=== PATIENT | female | born 1985 | race Caucasian/White ===

== ENCOUNTER 2017-01-23 20:23 | Emergency (ER) | payer SELFPAY ==
--- NOTE | ~2017-01-23 | ER ---
PATIENT'S NAME: LING BHATIA [facility] AGE: 31 Y [address] ROOM: [place] [id number] LOCATION: [facility] ADMIT DATE: 01/23/2017 ER/Outpatient Report DISCHARGE DATE: 01/23/2017 FAMILY PHYSICIAN: PHYSICIAN, NO ATTENDING PHYSICIAN: Haylie Johnson TIME OF PATIENT ARRIVAL: 2022. TIME OF PATIENT EVALUATION: 2034. CHIEF COMPLAINT: Upper abdominal pain. HISTORY OF PRESENT ILLNESS: This 31-year-old female presents to the ER. She states she has had some mid abdominal pain for the past 6 hours. She states she does have history of acid reflux and when she has troubles with that she does take an gwlp-ngg-cnnwrqj pill which usually seems to help her symptoms. She does not take that pill daily. She states that today's pain feels different than her acid reflux. She states it makes her feel nauseated. She has a sharp pain that radiates into her back and twisting type pain. She denies any troubles with urination. She feels like she has maybe been running a fever, but she has not checked for that. ALLERGIES: NO KNOWN ALLERGIES. MEDICATIONS: Please see medication list nurse's notes. PAST MEDICAL HISTORY: Negative. PAST SURGERIES: Scope for endometriosis, left knee surgery, and tonsillectomy. SOCIAL HISTORY: Smokes half pack a day. Denies any drug or alcohol use. REVIEW OF SYSTEMS: A 10-point review of systems was completed and was negative with the exception of those discussed in the HPI. PHYSICAL EXAMINATION: VITAL SIGNS: Height 5 feet 7 inches stated, weight 64.6 kg taken, blood pressure is 145/86, pulse 75, respirations 16, temperature 98 degrees PATIENT'S NAME: LING BHATIA [facility] AGE: 31 Y [address] ROOM: [place], [place] [address] LOCATION: [facility] ADMIT DATE: 01/23/2017 ER/Outpatient Report DISCHARGE DATE: 01/23/2017 FAMILY PHYSICIAN: PHYSICIAN, NO ATTENDING PHYSICIAN: Haylie Johnson tympanically, saturations 96% on room air. [place] Coma Score is 15. GENERAL: Alert, anxious, well-developed female, in fvwi-hb-fdxlhllk distress. HEENT. Head: Normocephalic. Eyes: Pupils are equal and reactive to light. She does display moist mucous membranes. LUNGS: Clear to auscultation bilaterally. HEART: Regular rate and rhythm. ABDOMEN: Soft. She has tenderness in all 4 quadrants with palpation but has no guarding in her upper quadrants with palpation. She has good bowel sounds throughout. No masses were palpated. EXTREMITIES: No clubbing or cyanosis. She has full range of motion of all limbs. SKIN: Warm, dry, and intact. LABORATORY DATA: CBC: White count is 10.8, hemoglobin 15.2, platelets 262, ANC is 7.3. CMS: Glucose is 110, otherwise unremarkable. Amylase 50, lipase 165. HCG is less than 1.0. H pylori was negative. CT scan shows mild to moderate stool. No other acute findings were seen. This is reported by Radiology. Ultrasound of her right upper quadrant was negative. IMPRESSION: 1. Mid abdominal pain. 2. Acid reflux. 3. Constipation. ASSESSMENT AND PLAN: We did start an IV here in the emergency room and did give her a liter of IV fluids along with 50 mcg of fentanyl and 4 mg of Zofran. She states that this mildly improved her pain. So, we then gave her a GI cocktail p.o. She states that this really did help her and brought her pain significantly down. We did give her 40 mg of Protonix. Repeated the fentanyl. The patient's pain started coming back up again, so we did give her 1 mg of Dilaudid IV. The patient initially did not want have a CAT scan, but then once pain started to return, we did do that image then. The patient states that she feels comfortable going home after her CAT scan results. We will dismiss her to home with a bottle of magnesium citrate to drink. She needs to continue to push fluids. The patient needs to eat bland foods. She needs to take her acid reflux medication daily. She may take Tums or Maalox as needed for breakthrough pain. Monitor her symptoms and I would like her to follow up with primary care physician for followup care, if she is not improving. The patient understands and agrees with the care. PATIENT'S NAME: NITA BHATIAMoi V[facility] AGE: 31 Y [address] ROOM: [place] [address] LOCATION: [facility] ADMIT DATE: 01/23/2017 ER/Outpatient Report DISCHARGE DATE: 01/23/2017 FAMILY PHYSICIAN: , JONATHAN ATTENDING PHYSICIAN: Haylie Johnson PA-C FOR MD ISAC SALINASJ/modl /[id number] d: 01/24/17 1603 t: 01/25/17 1810, OUTPATIENT REPORT
[2017-01-23 20:48] LABS: BASOPHIL # 0.1 K/uL (0.0-0.2); BASOPHIL % 0.6 %; EOSINOPHIL # 0.3 K/uL (0.0-0.5); EOSINOPHIL % 2.7 %; HEMATOCRIT 44.7 % (33.0-46.0); HEMOGLOBIN 15.2 g/dL (11.0-15.0); IMMATURE GRANULOCYTE % 0.3 %; LYMPHOCYTE # 2.6 K/uL (0.8-4.0); LYMPHOCYTE % 24.1 %; MCH 32.8 pg (27.0-34.0); MCV 96.5 fl (83.0-98.0); MONOCYTE # 0.5 K/uL (0.0-1.0); MONOCYTE % 4.8 %; MPV 11.3 fl (9.4-12.4); NEUTROPHIL # (ANC) 7.3 K/uL (1.8-7.8); NEUTROPHIL % 67.5 %; NRBC % 0 /100WBC (0-0.00); PLATELET COUNT 262 K/uL (150-450); RBC 4.63 M/uL (3.50-5.00); WBC 10.8 K/uL (4.0-11.0)
[2017-01-23 21:08] LABS: ALBUMIN 4.1 gm/dL (3.5-5.0); ALK PHOS 56 IU/L (33-138); ALT 25 IU/L (12-78); ANION GAP 12.7 (10.0-19.0); AST 19 IU/L (10-40); BLOOD UREA NITROGEN 11 mg/dL (6-24); CALCIUM 8.8 mg/dL (8.5-10.5); CHLORIDE 111 mMol/L (96-110); CO2 23 mMol/L (22-32); CREATININE 0.8 mg/dL (0.5-1.1); ESTIMATED GFR (MDRD EQUATION) > 60; POTASSIUM 3.7 mMol/L (3.7-5.1); SODIUM 143 mMol/L (135-145); TOTAL BILIRUBIN 0.2 mg/dL (0.0-1.5); TOTAL PROTEIN 7.4 g/dL (6.0-8.4)
[2017-01-28] MEDS ORDERED: DEXILANT60 MG PO (15:31)
[2017-01-28] MEDS ORDERED: NORCO 5-325 TA1 EACH PO (15:31)
== END 2017-01-23 23:01 | disposition disaster alternative care site (69) ==
LOC: GMED 20:23
PROVIDERS: Physician Assistant Medical
DX: K21.9 Gastro-esophageal reflux disease without esophagitis (principal); K59.00 Constipation, unspecified; F17.210 Nicotine dependence, cigarettes, uncomplicated; Z98.890 Other specified postprocedural states; Z79.899 Other long term (current) drug therapy; Z90.89 Acquired absence of other organs
CPT/HCPCS: C9113; J1170; J2405; J3010; J7030; Q9967

== ENCOUNTER 2017-01-25 21:03 | Emergency (ER) | payer SELFPAY ==
--- NOTE | ~2017-01-25 | ER ---
PATIENT'S NAME: LING BHATIA [facility] AGE: 31 Y [address] ROOM: [place] [address] LOCATION: ED ADMIT DATE: 01/25/2017 ER/Outpatient Report DISCHARGE DATE: 01/25/2017 FAMILY PHYSICIAN: PHYSICIAN, NO ATTENDING PHYSICIAN: Haylie Johnson TIME OF ARRIVAL: 2110 hours. TIME OF EXAM: 2121 hours. CHIEF COMPLAINT: Midepigastric pain. HISTORY OF PRESENT ILLNESS: The patient is having upper abdomen pain that radiates up the esophagus area. Pain started on 01/23/2017. She was seen here in the ER and workup was completed to include lab, ultrasound, and CAT scan. Everything was negative at that time except for constipation. She did take the bowel meds as scheduled on Wednesday and had good results, but the pain has never really gone away in the midepigastric area. She describes it as a constant pain that has like a twisting, stabbing type sensation to it. She denies being nauseated, has not vomited, had a normal bowel movement this morning, has had some chills, has had some urinary urgency, but no pain with urination. ALLERGIES: NO KNOWN ALLERGIES. CURRENT MEDICATIONS: Current medications are on her chart and reviewed by me. PAST MEDICAL HISTORY: Includes reflux, constipation. SOCIAL HISTORY: She presented to the ER tonight with her . Does smoke half-pack per day. Denies use of drugs or alcohol. REVIEW OF SYSTEMS: All negative other than those mentioned in the HPI. PHYSICAL EXAMINATION: VITAL SIGNS: She weighed 72.7 kg. Blood pressure is 141/61, pulse of 103, respirations 21, temp of 97.7, and O2 sat is 97% on room air. PATIENT'S NAME: LING BHATIA [facility] AGE: 31 Y [address] ROOM: [place] [address] LOCATION: ED ADMIT DATE: 01/25/2017 ER/Outpatient Report DISCHARGE DATE: 01/25/2017 FAMILY PHYSICIAN: PHYSICIAN, JONATHAN ATTENDING PHYSICIAN: Haylie Johnson GENERAL: She is awake, alert, and oriented x4. SKIN: [place], warm, and dry. RESPIRATIONS: Even and nonlabored. LUNGS: Lung sounds are clear throughout. HEART: Regular rate and rhythm. ABDOMEN: Soft and nondistended. Bowel sounds are present. She is very tender and has guarding along the upper abdomen all the way up pressing along the esophagus area. EMERGENCY DEPARTMENT COURSE: Saline lock was initiated. Lab was drawn. IV of normal saline was started at a wide-open rate. She was given Dilaudid 1 mg IV and a GI cocktail 30 mL p.o. Lab work showed a CBC within normal limits. Chem panel within normal limits. Amylase is 46, lipase is 124. Urine is negative. H. pylori is negative. Pain was better, but not gone. It still comes and goes. She was given Aragon 5/325 x2 tablets and Carafate 1 g p.o. We monitored vital signs which remained stable. Abdominal assessment has decreased tenderness, not gone, but better. Patient reviewed with Dr. Johnson. IMPRESSION: Epigastric pain. PLAN: Home, rest, fluids, prescription was written for Aragon, Carafate, and Zofran. She is to follow up with a fisher spear, encouraged her to call tomorrow and make an appointment. If symptoms persist or worsen, she is welcome to return to the ER. She verbalized understanding. DONTE BOX APRN FOR MD RASHAUN SALINAS/ashleyl /[id number] d: 01/26/17522 t: 02/24/17 1101, OUTPATIENT REPORT
[2017-01-25 21:24] LABS: BILIRUBIN URINE NEGATIVE (NEGATIVE); BLOOD URINE NEGATIVE /UL (NEGATIVE); COLOR URINE STRAW (YELLOW); GLUCOSE URINE NEGATIVE (NEGATIVE); KETONE URINE NEGATIVE (NEGATIVE); LEUKOCYTES URINE NEGATIVE /UL (NEGATIVE); NITRITE URINE NEGATIVE (NEGATIVE); PROTEIN URINE NEGATIVE (NEGATIVE); TURBIDITY URINE CLEAR (CLEAR); UROBILINOGEN URINE NORMAL (NORMAL)
[2017-01-25 21:45] LABS: BASOPHIL # 0.1 K/uL (0.0-0.2); BASOPHIL % 0.9 %; EOSINOPHIL # 0.3 K/uL (0.0-0.5); HEMATOCRIT 42.6 % (33.0-46.0); HEMOGLOBIN 14.7 g/dL (11.0-15.0); IMMATURE GRANULOCYTE % 0.3 %; LYMPHOCYTE # 2.4 K/uL (0.8-4.0); LYMPHOCYTE % 23.5 %; MCH 33.2 pg (27.0-34.0); MCHC 34.5 gm/dL (32.0-36.5); MCV 96.2 fl (83.0-98.0); MONOCYTE # 0.7 K/uL (0.0-1.0); MONOCYTE % 6.5 %; MPV 11.2 fl (9.4-12.4); NEUTROPHIL # (ANC) 6.7 K/uL (1.8-7.8); NEUTROPHIL % 65.8 %; NRBC % 0 /100WBC (0-0.00); PLATELET COUNT 250 K/uL (150-450); RBC 4.43 M/uL (3.50-5.00); RDW-CV 11.9 % (11.9-14.6); WBC 10.1 K/uL (4.0-11.0)
[2017-01-25 22:01] LABS: ALK PHOS 49 IU/L (33-138); ALT 24 IU/L (12-78); ANION GAP 12.9 (10.0-19.0); AST 15 IU/L (10-40); BLOOD UREA NITROGEN 7 mg/dL (6-24); CALCIUM 8.7 mg/dL (8.5-10.5); CHLORIDE 109 mMol/L (96-110); CO2 25 mMol/L (22-32); CREATININE 0.8 mg/dL (0.5-1.1); ESTIMATED GFR (MDRD EQUATION) > 60; POTASSIUM 3.9 mMol/L (3.7-5.1); SODIUM 143 mMol/L (135-145); TOTAL BILIRUBIN 0.2 mg/dL (0.0-1.5)
[2017-01-28] MEDS ORDERED: DEXILANT60 MG PO (15:31)
[2017-01-28] MEDS ORDERED: NORCO 5-325 TA1 EACH PO (15:31)
== END 2017-01-25 23:04 | disposition disaster alternative care site (69) ==
LOC: GMED 21:03
PROVIDERS: Emergency Medicine
DX: R10.13 Epigastric pain (principal); K21.9 Gastro-esophageal reflux disease without esophagitis; F17.210 Nicotine dependence, cigarettes, uncomplicated; Z79.899 Other long term (current) drug therapy
CPT/HCPCS: J1170; J7030

== ENCOUNTER → 2017-01-29 | Day surgery (SDC) | payer SELFPAY ==
[~2017-01-29] VITALS: Ht 165.1 cm; Wt 64.6 kg
[~2017-01-29] MED LIST: DEXILANT60 MG PO; NORCO 5-325 TA1 EACH PO
== END | disposition disaster alternative care site (69) ==
LOC: GPOC 01-28 17:00 → GEND 08:13 → GPOC 17:00
PROC: 0DB98ZX Excision of Duodenum, Via Natural or Artificial Opening Endoscopic, Diagnostic (ICD-10-PCS; principal; 2017-01-29)
PROC: 0DB68ZX Excision of Stomach, Via Natural or Artificial Opening Endoscopic, Diagnostic (ICD-10-PCS; 2017-01-29)
DX: K29.50 Unspecified chronic gastritis without bleeding (principal); K59.00 Constipation, unspecified; R56.9 Unspecified convulsions; Z98.890 Other specified postprocedural states
CPT/HCPCS: J7030